=== PATIENT | female | born 1975 | race Caucasian/White ===

== ENCOUNTER → 2018-02-08 01:07 | Outpatient (CLI) | payer BC, SELFPAY ==
--- NOTE | 2018-02-08 10:24 | DI.REPORT_ITS ---
SYMPTOM/DIAGNOSIS: SCREENING, Z12.31 MAMMOGRAMS: Mammograms were interpreted according to the usual protocol including computer analysis with CAD system, tomosynthesis and C view imaging. Heterogeneously dense breast tissue is noted in the upper outer quadrant of each breast. SUMMARY: No evidence of malignancy, Category 1, Breast density category C. Yearly screening mammography is recommended. SA ASSESSMENT OF FINDINGS: Negative. Category 1. Patient will receive a letter notifying them of these results. Bi-RADS category C. The breasts are heterogeneously dense, which may obscure small masses.
== END ==
PROVIDERS: PCP Internal Medicine; Visit Provider Nurse Practitioner Family
DX: Z12.31 Encounter for screening mammogram for malignant neoplasm of breast (principal)
CPT/HCPCS: 77063; 77067

== ENCOUNTER 2018-04-29 10:29 | Emergency (ER) | payer BC, SELFPAY ==
[2018-04-29 10:31] VITALS: BP 136/86; PULSE 73; RESP 18; TEMP 36.9; O2SAT 99
--- NOTE | 2018-04-29 10:44 | DI.CT_ITS ---
SYMPTOMS/DIAGNOSIS: RIGHT LOWER QUADRANT ABDOMINAL PAIN WITH TINGLING IN LEGS CTA OF THE ABDOMEN AND PELVIS: CT angiography was performed with multi slice acquisition and multi planar and 3D reconstruction. No priors for comparison. CT angiography of the abdomen and pelvis was performed. There is a 4 mm noncalcified pleural-based nodule in the right lower lobe. The liver is normal in size. There is a 0.7 cm cyst in the left lobe of the liver. The portal and superior mesenteric veins are patent. The gallbladder is negative. No biliary ductal dilatation is seen. The pancreas, spleen and adrenal glands are unremarkable. The kidneys show normal and symmetric enhancement. Note is made of a small simple cyst in the lower pole of the left kidney. No evidence of hydronephrosis is seen. The urinary bladder is intact. There is a 4 x 4 cm left adnexal mass seen. This is likely ovarian in origin. The right ovary and uterus are unremarkable. There is mild diverticular disease seen at the rectosigmoid junction. There are mild inflammatory changes seen in the pericolonic fat. This may represent a mild diverticulitis. Please correlate clinically. The remainder of the bowel is unremarkable. There is a normal appendix present. The abdominal aorta is of normal caliber and unremarkable. No aneurysm or dissection is present. The celiac axis, superior mesenteric arteries, renal arteries and inferior mesenteric arteries are all unremarkable. No significant abdominal or pelvic adenopathy or pneumoperitoneum is present. Note is made of a small hiatal hernia. The bones are intact. IMPRESSION: 1. No aneurysm or dissection of the abdominal aorta. 2. A 4 x 4 cm left adnexal mass, likely ovarian in origin. Differential considerations include hemorrhagic or infected cyst, torsion or ectopic in the appropriate clinical setting. Pelvic ultrasound recommended. 3. Diverticulosis seen near the rectosigmoid junction. Mild inflammatory changes seen in the pericolonic fat. Mild diverticulitis cannot be excluded.
[2018-04-29 11:01] LABS: Abs Immature Grans 0.02 k/cumm (0.0-0.09); Absolute Basophil Count 0.02 k/cumm (0.0-0.2); Absolute Eosinophil Count 0.26 k/cumm (0.0-0.7); Absolute Lymphocyte Count 1.55 k/cumm (1.2-3.4); Absolute Monocyte Count 0.55 k/cumm (0.11-0.7); Absolute Neutrophil Count 6.77 k/cumm (1.2-6.7); Basophils % 0.2; Eosinophils % 2.8; HCT 37.4 % (36.0-46.0); HGB 12.5 g/dL (12.0-15.5); Immature Grans % 0.2; Lymphocytes % 16.9; Mean Corp. HGB Concentration 33.4 g/dL (32.0-36.0); Mean Corpuscular Hemoglobin 29.6 pg (27.0-33.0); Mean Corpuscular Volume 88.6 fL (80-95); Mean Platelet Volume 9.9 fL (8.0-11.0); Neutrophils % 73.9; Platelet Count 373 x1000/uL (130-400); RBC 4.22 m/cumm (4.00-5.20); RBC Distribution Width 14.3 % (11.7-14.6); White Blood Cell Count 9.17 k/cumm (4.4-10.8)
[2018-04-29] MEDS: Normal Saline 1,000 ML 1000 ML IV (11:03)
[2018-04-29 11:04] LABS: Bilirubin Negative (Negative); Blood Moderate (Negative); Clarity Clear; Glucose Negative (Negative); Ketones Trace mg/dL (Negative); Leukocyte Esterase Negative (Negative); Nitrite Negative (Negative); Specific Gravity 1.025 (1.005-1.025); Urobilinogen 0.2 EU/dL (Up TO 0.2); pH 6.5 (5-8)
[2018-04-29 11:12] LABS: Bacteria Moderate HPF (Negative); C & S Indicated? No; Casts Negative LPF (Negative); Crystals Negative HPF (Negative); Epithelial Cells Moderate HPF (Negative); Mucus Heavy (Negative); RBC >50 (0-2)
[2018-04-29 11:13] LABS: ALT 18 U/L (12-78); AST 17 U/L (15-37); Albumin 3.9 g/dL (3.4-5.0); Alkaline Phosphatase 68 U/L (46-116); Anion Gap 10.1 mmol/L (3-11); BUN 11 mg/dL (7-18); Bilirubin, Total 0.6 mg/dL (0.2-1.0); CO2 24.9 mmol/L (21.0-32.0); CREATININE 0.85 mg/dL (0.55-1.02); Calcium 8.7 mg/dL (8.5-10.1); Chloride 103 mmol/L (98-107); Glucose 124 mg/dL (70-100); Potassium 3.6 mmol/L (3.5-5.1); Sodium 138 mmol/L (136-145); Total Protein 7.8 g/dL (6.4-8.2)
[2018-04-29] MEDS: Omnipaque 350 MG/ML 100 ML BTL IJ (11:39)
--- NOTE | 2018-04-29 12:15 | DI.VRAD_ITS ---
EXAM: CT Angiography Abdomen and Pelvis With Intravenous Contrast EXAM DATE/TIME: 04/29/2018 10:47 AM CLINICAL HISTORY: 43 years old, female; Pain; Other: Abd pain, leg tingling TECHNIQUE: Axial computed tomographic angiography images of the abdomen and pelvis with intravenous contrast material, including non-contrast images if performed. MIP and/or 3D reconstructed images were created and reviewed. All CT scans at this facility use at least one of these dose optimization techniques: automated exposure control; mA and/or kV adjustment per patient size (includes targeted exams where dose is matched to clinical indication); or iterative reconstruction. 3D reconstructed images were created and reviewed. CONTRAST: 100 ml of omnipaque 350 administered intravenously. COMPARISON: No relevant prior studies available. FINDINGS: Lungs: Normal. No consolidation. Pleura: 4 mm pleural-based nodule in the right lower lobe VASCULATURE: Aorta: No aneurysm of the ascending aorta. No dissection of the aorta. Celiac Trunk and Mesenteric Arteries: No occlusion or significant stenosis. Renal Arteries: No occlusion or significant stenosis. Iliac Arteries: No occlusion or significant stenosis. Common Femoral Arteries: No occlusion or significant stenosis. ABDOMEN: Liver: 7 mm low attenuation area in the anterior liver may represent cyst 19-21 Hounsfield units Gallbladder and bile ducts: Unremarkable. No calcified stones. No ductal dilation. Pancreas: Unremarkable. No mass. No ductal dilation. Spleen: Unremarkable. No splenomegaly. Adrenals: Unremarkable. No mass. Kidneys and ureters: 9 mm cyst in the left kidney Stomach and bowel: Diverticulosis of the rectosigmoid. Minimal pericolonic inflammatory changes may represent minimal diverticulitis in the appropriate clinical setting. Appendix: No evidence of appendicitis. PELVIS: Bladder: Unremarkable. No mass. Reproductive: Left adnexal mass 4x4 cm. (5.65). 38 Hounsfield units. 2.2 cm Right ovarian cyst. ABDOMEN and PELVIS: Intraperitoneal space: Minimal free fluid in the pelvis Bones/joints: No acute fracture. No dislocation. Soft tissues: Unremarkable. Lymph nodes: Small retroperitoneal nodes IMPRESSION: 1. No aneurysm of the ascending aorta. 2. No dissection of the aorta. 3. Left adnexal mass 4x4 cm. (5.65). 38 Hounsfield units. Differential includes hemorrhagic cyst, infection, ectopic in the appropriate clinical setting, torsion. Recommend pelvic ultrasound if clinically indicated 4. 2.2 cm Right ovarian cyst. 5. Diverticulosis of the rectosigmoid. Minimal pericolonic inflammatory changes may represent minimal diverticulitis in the appropriate clinical setting. Dictated and Authenticated by: Saba Pierce MD. Ordering:DAVON MCMILLAN MD
--- NOTE | 2018-04-29 13:53 | DI.US_ITS ---
SYMPTOMS/DIAGNOSIS: RIGHT LOWER QUADRANT PAIN, ? TORSION PELVIC ULTRASOUND: Transabdominal and transvaginal examination was performed. The uterus measures 9.3 cm long x 5.5 cm AP x 7.0 cm transverse. The endometrial stripe is within normal limits at 0.7 cm. There are several cervical nabothian cysts present. There is a 2 x 2.1 x 2.3 cm hypoechoic mass in the fundus of the uterus, likely reflecting a fibroid. The right ovary measures 2.5 x 2.2 x 3.1 cm. There is a 1 cm follicular cyst. Arterial and venous flow is demonstrated in the right ovary. No evidence of torsion is seen. No suspicious right ovarian mass is present. The left ovary measures 4.1 x 2.7 x 2.4 cm. Color Doppler was demonstrated in the left ovary. There was no duplex assessment of the left ovary. Torsion cannot be entirely excluded in the left ovary. There are mildly dilated vessels in the left adnexa. Mild pelvic congestion cannot cannot be excluded. The kidneys show no evidence of nephrolithiasis. There is a 1.5 cm left renal cyst. IMPRESSION: 1. Uterine fibroid. 2. Normal appearance of the right ovary without evidence of torsion. 3. Color Doppler is demonstrated in the left ovary. Duplex assessment was not performed. Torsion cannot be entirely excluded in the left ovary.
--- NOTE | 2018-04-29 15:36 | DI.VRAD_ITS ---
EXAM: US Pelvis Complete, Transabdominal and US Pelvis, Transvaginal EXAM DATE/TIME: 04/29/2018 2:51 PM CLINICAL HISTORY: 43 years old, female; Pain; Pelvic pain; Additional info: CT today raised question about lt adnexal mass, are the dilated vessels. Noted on US what was seen on CT? TECHNIQUE: Real-time transabdominal and transvaginal pelvic ultrasound (complete) with image documentation. Transvaginal imaging was used for better evaluation of the endometrium and adnexa. COMPARISON: CT ABDOMEN/ PELVIS CTA 04/29/2018 11:22 AM FINDINGS: Uterus/cervix: Endometrium 7.4 mm 2 x 2.1 x 2.3 cm Hypoechoic mass in the uterus consistent with intramural fibroid Nabothian cysts in the cervix Uterus 9.3 x 5.5 x 7 cm Right adnexa: Right ovary 2.5 x 2.2 x 3.1 cm Peak systolic velocity right ovary 13 cm/s. Venous flow documented. No torsion in the right ovary. Left adnexa: Varices in the left adnexal region. Question mild congestion Left ovary 4.1 x 2.7 x 2.4 cm Color Doppler demonstrated in both ovaries but no duplex assessment of left ovary. Torsion cannot be ruled out the left ovary. Free fluid: None. Bladder: Normal. Kidneys: The Right kidney 11.3 cm . Left kidney 12.3 cm. no hydronephrosis. 15 mm left renal cyst IMPRESSION: 1. Color Doppler demonstrated in both ovaries but no duplex assessment of left ovary. Torsion cannot be ruled out the left ovary. If torsion is suspected in the left ovary recommend duplex evaluation 2. Peak systolic velocity right ovary 13 cm/s. Venous flow documented. No torsion in the right ovary. Dictated and Authenticated by: Saba Pierce MD. Ordering:DAVON MCMILLAN MD
[2018-04-29 16:35] VITALS: BP 116/72; PULSE 93; RESP 16; TEMP 37.2; O2SAT 98
[2018-04-29 17:02] VITALS: BP 116/72; PULSE 93; RESP 16; TEMP 37.2; O2SAT 98
--- NOTE | 2018-04-30 09:40 | W.ED.GENAD ---
Discharge Plan Disposition Patient Disposition: HOME Condition: Good Discharge Details Chief Complaint: Abd Prob Clinical Impression: Pelvic pain Reason For Visit: LISA Primary Care Provider: Tom Dillon ED Provider: Kenney Greer Home Meds and New Rx's Prescriptions: New acetaminophen [Mapap Extra Strength] 500 MG tablet 1,000 mg PO Q6H 5 Days Qty: 60 RF: 0 ibuprofen [Motrin IB] 200 MG tablet 600 mg PO Q6H 5 Days Qty: 60 RF: 0 No Action [id number]-Ao-cowy-minerals [Women's Daily Formula] 1 EACH tablet 1 ea PO RF: 0 Discharge Instructions Instructions: Ovarian Cyst (ED) Additional Instructions: Please follow-up at the [facility] wellness clinic tomorrow morning for reevaluation. If you notice any worsening of your symptoms, or any new symptoms such as vomiting, diarrhea, fever, chills, shortness of breath, chest pain, vaginal discharge, worsening bleeding, worsening pain, numbness, weakness, or fainting , please return immediately to the emergency department for reevaluation. Please follow up with your primary care provider as soon as possible for reassessment and reevaluation. As always, it was a pleasure participating in your medical care today. Referrals: Tom Dillon MD [Primary Care Provider] - Discharge Data Discharge Date/Time-TO BE ENTERED AT DEPARTURE: 04/29/18 17:02 Medical Decision Making This is a pleasant 43-year-old female with no significant past medical history but distant history of ovarian cyst, who presents today for evaluation of sudden onset right lower quadrant abdominal pain and right-sided pelvic pain with some associated left-sided pain as well. Pain began an hour to arrival, she had one associated episode of vomiting. Pain is aching in nature, it comes and goes in severity. Physical exam demonstrated mild tenderness on the right and lower sides of her abdomen, no guarding or rebound. No signs of acute surgical abdomen. The patient did just start her period yesterday CT scan was ordered and demonstrates evidence concerning for ovarian cysts, with a differential including hemorrhagic cyst, torsion, or ectopic . The patient's test is negative and so ectopic is been ruled out. Laboratory workup demonstrates no elevated white count, no bandemia. Urinalysis shows no evidence of significant infection. I feel that tubo-ovarian abscess is unlikely clinically. Out of concern for torsion versus cyst versus hemorrhagic cyst we did order his ultrasound, ultrasound demonstrates no evidence of torsion however because of the patient's body habitus it was difficult to assess duplex in her left ovary. However Doppler did demonstrate blood flow in both ovaries. Patient's pain is primarily focused on the right. After initially and analgesia the patient's pain has nearly completely resolved. She is hungry and would like to go home to eat. CT scan shows no evidence of appendicitis, or other significant abdominal abnormality. Because of the odd nature of the ultrasound and CT scan I did contact the obstetrics mainstreaming facilitator Dr. Rodriguez. I had him personally contacted the interior systems carpenter and review the case with him. Through shared decision making process after discussion with all parties involved, including the patient Dr. Rodriguez does feel that the patient would be safe for discharge home with close follow-up. I think this is very reasonable as her pain is resolved, she has benign laboratory workup, no signs of overt torsion on imaging. Differential for the cause of her pain includes a small ruptured cyst, severe menses cramps. I discussed the plan with the patient and she agrees, the patient will be discharged home with follow-up tomorrow morning at the OB clinic. We discussed red flags which to return and the patient understand. I have extensively reviewed the treatment plan and discharge instructions with the patient and their family. I have addressed all patient concerns at this time. The patient and family was made aware of what symptoms to monitor for that would warrant a return to the emergency department. Discussed the plan with the patient and family, they demonstrate verbal understanding and agreement with our assessment and plan at this time. Patient Name: Vic SUERO #: [id number]: ER Ordering Provider: : [facility] ER Primary Care Provider: Tom Dillon M.D.Date of Exam: 04/29/18ex: F : 1975Age: 43 Exam(s) EXAM: US Pelvis Complete, Transabdominal and US Pelvis, Transvaginal EXAM DATE/TIME: 04/29/2018 2:51 PM CLINICAL HISTORY: 43 years old, female; Pain; Pelvic pain; Additional info: CT today raised question about lt adnexal mass, are the dilated vessels. Noted on US what was seen on CT? TECHNIQUE: Real-time transabdominal and transvaginal pelvic ultrasound (complete) with image documentation. Transvaginal imaging was used for better evaluation of the endometrium and adnexa. COMPARISON: CT ABDOMEN/ PELVIS CTA 04/29/2018 11:22 AM FINDINGS: Uterus/cervix: Endometrium 7.4 mm 2 x 2.1 x 2.3 cm Hypoechoic mass in the uterus consistent with intramural fibroid Nabothian cysts in the cervix Uterus 9.3 x 5.5 x 7 cm Right adnexa: Right ovary 2.5 x 2.2 x 3.1 cm Peak systolic velocity right ovary 13 cm/s. Venous flow documented. No torsion in the right ovary. Left adnexa: Varices in the left adnexal region. Question mild congestion Left ovary 4.1 x 2.7 x 2.4 cm Color Doppler demonstrated in both ovaries but no duplex assessment of left ovary. Torsion cannot be ruled out the left ovary. Free fluid: None. Bladder: Normal. Kidneys: The Right kidney 11.3 cm . Left kidney 12.3 cm. no hydronephrosis. 15 mm left renal cyst IMPRESSION: 1. Color Doppler demonstrated in both ovaries but no duplex assessment of left ovary. Torsion cannot be ruled out the left ovary. If torsion is suspected in the left ovary recommend duplex evaluation 2. Peak systolic velocity right ovary 13 cm/s. Venous flow documented. No torsion in the right ovary. Dictated and Authenticated by: Saba Pierce MD. Ordering:DAVON MCMILLAN MD CTA Abd Impression: 1. No aneurysm of the ascending aorta. 2. No dissection of the aorta. 3. Left adnexal mass 4x4 cm. (5.65). 38 Hounsfield units. Differential includes hemorrhagic cyst, infection, ectopic in the appropriate clinical setting, torsion. Recommend pelvic ultrasound if clinically indicated 4. 2.2 cm Right ovarian cyst. 5. Diverticulosis of the rectosigmoid. Minimal pericolonic inflammatory changes may represent minimal diverticulitis in the appropriate clinical setting. Dictated and Authenticated by: Saba Pierce MD. HPI General Date/Time Provider Initiated Documentation: 04/29/18 10:37. HPI Narrative: This is a 43-year-old female with a past medical history of an umbilical hernia who presents today for evaluation of right lower quadrant abdominal pain. Patient states that she woke up this morning with sudden onset right-sided abdominal pain roughly 1 hour prior to arrival. She describes it as achy in nature. She felt very lightheaded, she had one episode of vomiting secondary to the pain. She does state that her period started yesterday, has been otherwise normal. She denies any diarrhea, and aside for the mild bleeding no vaginal discharge. She denies any chest pain, shortness of breath, numbness tingling or weakness. She does admit to a weird sensation traveling down the anterior aspect of her right thigh with the onset of her initial symptoms. She denies any consistent numbness tingling or weakness. She states that the pain comes and goes and at its worst it is a 10 at its best it is a 3. She is unsure of any specific aggravating or relieving factor. She denies any other component of her symptoms at this time. She does admit to a history of an ovarian cyst when she was 17 years old, she denies any other previous pelvic or abdominal pathologies. She denies any history of STDs. She denies any pertinent family history, she denies any IV or illicit drug use. Related Data Home Medications Medication Instructions Recorded Confirmed [id number]-Sg-pcpq-minerals 1 ea PO 01/29/18 [Women's Daily Formula] acetaminophen [Mapap Extra 1,000 mg PO Q6H 5 Days #60 tab 04/29/18 Strength] ibuprofen [Motrin Ib] 600 mg PO Q6H 5 Days #60 tab 04/29/18 Previous Rx's Medication Instructions Recorded acetaminophen [Mapap Extra 1,000 mg PO Q6H 5 Days #60 tab 04/29/18 Strength] ibuprofen [Motrin Ib] 600 mg PO Q6H 5 Days #60 tab 04/29/18 Allergies Allergy/AdvReac Type Severity Reaction Status Date / Time aspirin Allergy Unknown OOZY Unverified 01/29/18 09:46 penicillin G Allergy Unknown A Unverified 01/29/18 09:46 CHILD- SKIN RASH shellfish derived Allergy Unknown FAMILIAL-STOMACH Unverified 01/29/18 09:46 REACTION General Stated Complaint: Abd Prob ROBIN: 3 Review of Systems Review of Systems All systems reviewed & are unremarkable except as noted in HPI and below PFSH Family History Mother Multiple sclerosis Father Essential hypertension Exam Narrative Exam Narrative: 1.Const: Well-nourished, Well-developed, appearing stated age 2.Eyes: PERRL, no conjunctival injection, and symmetrical lids. 3.ENT: Atraumatic external nose and ears. Moist MM. Neck: Symmetric, trachea midline, No thyromegaly. 4.CVS: +S1/S2, No murmurs or gallops. Peripheral pulses 2+ and equal in all extremities. Brisk capillary refill in all extremities. 5.RESP: Unlabored respiratory effort. Clear to auscultation bilaterally. No wheezes rales or rhonchi 6.GI: Abdomen is soft, no guarding or rebound. Mild to moderate pain in the right lower quadrant as well as left lower quadrant. Negative Pagan sign. No worsening of the pain with the obturator or psoas movement. Negative heel strike test. No CVA tenderness. Normal strength of the lower extremities. Mild right and left lower pelvic pain on palp. 7.MSK: Normocephalic/Atraumatic, Extremities w/o deformity or ttp No cyanosis or clubbing, Normal movement of all extremities 8.Skin: Warm, Dry. No rashes or lesions. 9.Neuro: clinical safety specialist II-XII grossly intact. Sensation grossly intact, no focal neurologic deficits. 10.Psych: (AAO) x3. Appropriate mood and affect Course Vital Signs Temperature 36.9 C 04/29/18 10:31 Pulse 73 04/29/18 10:31 Respiratory Rate 18 04/29/18 10:31 Blood Pressure 136/86 04/29/18 10:31 Pulse Oximetry 99 04/29/18 10:31 Temperature 37.2 C 04/29/18 17:02 Temperature Source Temporal Artery Scan 04/29/18 16:35 Pulse 93 H 04/29/18 17:02 Respiratory Rate 16 04/29/18 17:02 Respiratory Effort Non-Labored 04/29/18 11:08 Blood Pressure 116/72 04/29/18 17:02 Blood Pressure Position Supine 04/29/18 10:31 Pulse Oximetry 98 04/29/18 17:02 Oxygen Delivery Method Room Air 04/29/18 16:35 Oxygen Flow Rate 0 04/29/18 16:35 Pain Level 0 04/29/18 17:02 Lab/Test Results Lab/Test Results: Laboratory Tests Range/Units 04/29/18 04/29/18 04/29/18 10:35 10:35 10:55 WBC (4.4-10.8) k/cumm 9.17 RBC (4.00-5.20) m/cumm 4.22 Hgb (12.0-15.5) g/dL 12.5 Hct (36.0-46.0) % 37.4 MCV (80-95) fL 88.6 MCH (27.0-33.0) pg 29.6 MCHC (32.0-36.0) g/dL 33.4 RDW (11.7-14.6) % 14.3 Plt Count (130-400) x1000/uL 373 MPV (8.0-11.0) fL 9.9 Immature Gran % 0.2 Neutrophils % 73.9 Lymphocytes % 16.9 Monocytes % 6.0 Eosinophils % 2.8 Basophils % 0.2 Absolute Neutrophils (1.2-6.7) k/cumm 6.77 H Absolute Lymphocytes (1.2-3.4) k/cumm 1.55 Absolute Monocytes (0.11-0.7) k/cumm 0.55 Absolute Eosinophils (0.0-0.7) k/cumm 0.26 Absolute Basophils (0.0-0.2) k/cumm 0.02 Sodium (136-145) mmol/L 138 Potassium (3.5-5.1) mmol/L 3.6 Chloride (98-107) mmol/L 103 Carbon Dioxide (21.0-32.0) mmol/L 24.9 Anion Gap (3-11) mmol/L 10.1 BUN (7-18) mg/dL 11 Creatinine (0.55-1.02) mg/dL 0.85 Estimated GFR/1.73 m2 (mL/min/1.73m2) >= 60.00 Glucose (70-100) mg/dL 124 H Calcium (8.5-10.1) mg/dL 8.7 Total Bilirubin (0.2-1.0) mg/dL 0.6 AST (15-37) U/L 17 ALT (12-78) U/L 18 Alkaline Phosphatase (46-116) U/L 68 Total Protein (6.4-8.2) g/dL 7.8 Albumin (3.4-5.0) g/dL 3.9 Urine Color (Yellow) Yellow Urine Clarity Clear Urine pH (5-8) 6.5 Ur Specific [place] (1.005-1.025) 1.025 Urine Protein (Negative) mg/dL Negative Urine Ketones (Negative) mg/dL Trace H Urine Blood (Negative) Moderate H Urine Nitrite (Negative) Negative Urine Bilirubin (Negative) Negative Urine Urobilinogen (Up TO 0.2) EU/dL 0.2 Ur Leukocyte Esterase (Negative) Negative Urine RBC (0-2) >50 H Urine WBC (0-5) HPF 3-5 Ur Epithelial Cells (Negative) HPF Moderate Urine Crystals (Negative) HPF Negative Urine Bacteria (Negative) HPF Moderate Urine Casts (Negative) LPF Negative Urine Mucus (Negative) Heavy Ur Culture Indicated? No Urine Glucose (Negative) mg/dL Negative POC- Test(urine) Negative
--- NOTE | 2018-04-30 09:48 | ED.GENADUL_ITS ---
Discharge Plan Disposition Patient Disposition: HOME Condition: Good Discharge Details Chief Complaint: Abd Prob Clinical Impression: Pelvic pain Reason For Visit: LISA Primary Care Provider: Tom Dillon ED Provider: Kenney Greer Home Meds and New Rx's Prescriptions: New acetaminophen [Mapap Extra Strength] 500 MG tablet 1,000 mg PO Q6H 5 Days Qty: 60 RF: 0 ibuprofen [Motrin IB] 200 MG tablet 600 mg PO Q6H 5 Days Qty: 60 RF: 0 No Action rfyemhfhfeui-Nj-iibs-minerals [Women's Daily Formula] 1 EACH tablet 1 ea PO RF: 0 Discharge Instructions Instructions: Ovarian Cyst (ED) Additional Instructions: Please follow-up at the [facility] tomorrow morning for reevaluation. If you notice any worsening of your symptoms, or any new symptoms such as vomiting, diarrhea, fever, chills, shortness of breath, chest pain, vaginal discharge, worsening bleeding, worsening pain, numbness, weakness , or fainting , please return immediately to the emergency department for reevaluation. Please follow up with your primary care provider as soon as possible for reassessment and reevaluation. As always, it was a pleasure participating in your medical care today. Referrals: Tom Dillon MD [Primary Care Provider] - Discharge Data Discharge Date/Time-TO BE ENTERED AT DEPARTURE: 04/29/18 17:02 Medical Decision Making This is a pleasant 43-year-old female with no significant past medical history but distant history of ovarian cyst, who presents today for evaluation of sudden onset right lower quadrant abdominal pain and right-sided pelvic pain with some associated left-sided pain as well. Pain began an hour to arrival, she had one associated episode of vomiting. Pain is aching in nature, it comes and goes in severity. Physical exam demonstrated mild tenderness on the right and lower sides of her abdomen, no guarding or rebound. No signs of acute surgical abdomen. The patient did just start her period yesterday CT scan was ordered and demonstrates evidence concerning for ovarian cysts, with a differential including hemorrhagic cyst, torsion, or ectopic . The patient's test is negative and so ectopic is been ruled out. Laboratory workup demonstrates no elevated white count, no bandemia. Urinalysis shows no evidence of significant infection. I feel that tubo-ovarian abscess is unlikely clinically. Out of concern for torsion versus cyst versus hemorrhagic cyst we did order his ultrasound, ultrasound demonstrates no evidence of torsion however because of the patient's body habitus it was difficult to assess duplex in her left ovary. However Doppler did demonstrate blood flow in both ovaries. Patient's pain is primarily focused on the right. After initially and analgesia the patient's pain has nearly completely resolved. She is hungry and would like to go home to eat. CT scan shows no evidence of appendicitis, or other significant abdominal abnormality. Because of the odd nature of the ultrasound and CT scan I did contact the obstetrics rod cup filler Dr. Rodriguez. I had him personally contacted the instrumentation and controls technician and review the case with him. Through shared decision making process after discussion with all parties involved, including the patient Dr. Rodriguez does feel that the patient would be safe for discharge home with close follow-up. I think this is very reasonable as her pain is resolved, she has benign laboratory workup, no signs of overt torsion on imaging. Differential for the cause of her pain includes a small ruptured cyst, severe menses cramps. I discussed the plan with the patient and she agrees, the patient will be discharged home with follow-up tomorrow morning at the OB clinic. We discussed red flags which to return and the patient understand. I have extensively reviewed the treatment plan and discharge instructions with the patient and their family. I have addressed all patient concerns at this time. The patient and family was made aware of what symptoms to monitor for that would warrant a return to the emergency department. Discussed the plan with the patient and family, they demonstrate verbal understanding and agreement with our assessment and plan at this time. Patient Name: Vic SUERO #: [id number]: ER Ordering Provider: : [facility] Primary Care Provider: Tom Dillon M.D.Date of Exam: 04/29/18ex: F : 1975Age: 43 Exam(s) EXAM: US Pelvis Complete, Transabdominal and US Pelvis, Transvaginal EXAM DATE/TIME: 04/29/2018 2:51 PM CLINICAL HISTORY: 43 years old, female; Pain; Pelvic pain; Additional info: CT today raised question about lt adnexal mass, are the dilated vessels. Noted on US what was seen on CT? TECHNIQUE: Real-time transabdominal and transvaginal pelvic ultrasound (complete) with image documentation. Transvaginal imaging was used for better evaluation of the endometrium and adnexa. COMPARISON: CT ABDOMEN/ PELVIS CTA 04/29/2018 11:22 AM FINDINGS: Uterus/cervix: Endometrium 7.4 mm 2 x 2.1 x 2.3 cm Hypoechoic mass in the uterus consistent with intramural fibroid Nabothian cysts in the cervix Uterus 9.3 x 5.5 x 7 cm Right adnexa: Right ovary 2.5 x 2.2 x 3.1 cm Peak systolic velocity right ovary 13 cm/s. Venous flow documented. No torsion in the right ovary. Left adnexa: Varices in the left adnexal region. Question mild congestion Left ovary 4.1 x 2.7 x 2.4 cm Color Doppler demonstrated in both ovaries but no duplex assessment of left ovary. Torsion cannot be ruled out the left ovary. Free fluid: None. Bladder: Normal. Kidneys: The Right kidney 11.3 cm . Left kidney 12.3 cm. no hydronephrosis. 15 mm left renal cyst IMPRESSION: 1. Color Doppler demonstrated in both ovaries but no duplex assessment of left ovary. Torsion cannot be ruled out the left ovary. If torsion is suspected in the left ovary recommend duplex evaluation 2. Peak systolic velocity right ovary 13 cm/s. Venous flow documented. No torsion in the right ovary. Dictated and Authenticated by: Saba Pierce MD. Ordering:DAVON MCMILLAN MD CTA Abd Impression: 1. No aneurysm of the ascending aorta. 2. No dissection of the aorta. 3. Left adnexal mass 4x4 cm. (5.65). 38 Hounsfield units. Differential includes hemorrhagic cyst, infection, ectopic in the appropriate clinical setting, torsion. Recommend pelvic ultrasound if clinically indicated 4. 2.2 cm Right ovarian cyst. 5. Diverticulosis of the rectosigmoid. Minimal pericolonic inflammatory changes may represent minimal diverticulitis in the appropriate clinical setting. Dictated and Authenticated by: Saba Pierce MD. HPI General Date/Time Provider Initiated Documentation: 04/29/18 10:37 . HPI Narrative: This is a 43-year-old female with a past medical history of an umbilical hernia who presents today for evaluation of right lower quadrant abdominal pain. Patient states that she woke up this morning with sudden onset right-sided abdominal pain roughly 1 hour prior to arrival. She describes it as achy in nature. She felt very lightheaded, she had one episode of vomiting secondary to the pain. She does state that her period started yesterday, has been otherwise normal. She denies any diarrhea, and aside for the mild bleeding no vaginal discharge. She denies any chest pain, shortness of breath, numbness tingling or weakness. She does admit to a weird sensation traveling down the anterior aspect of her right thigh with the onset of her initial symptoms. She denies any consistent numbness tingling or weakness. She states that the pain comes and goes and at its worst it is a 10 at its best it is a 3. She is unsure of any specific aggravating or relieving factor. She denies any other component of her symptoms at this time. She does admit to a history of an ovarian cyst when she was 17 years old, she denies any other previous pelvic or abdominal pathologies. She denies any history of STDs. She denies any pertinent family history, she denies any IV or illicit drug use. Related Data Home Medications Medication Instructions Recorded Confirmed dkuxnsqpzlzg-Vb-qztv-minerals 1 ea PO 01/29/18 [Women's Daily Formula] acetaminophen [Mapap Extra 1,000 mg PO Q6H 5 Days #60 tab 04/29/18 Strength] ibuprofen [Motrin Ib] 600 mg PO Q6H 5 Days #60 tab 04/29/18 Previous Rx's Medication Instructions Recorded acetaminophen [Mapap Extra 1,000 mg PO Q6H 5 Days #60 tab 04/29/18 Strength] ibuprofen [Motrin Ib] 600 mg PO Q6H 5 Days #60 tab 04/29/18 Allergies Allergy/AdvReac Type Severity Reaction Status Date / Time aspirin Allergy Unknown OOZY Unverified 01/29/18 09:46 penicillin G Allergy Unknown A Unverified 01/29/18 09:46 CHILD- SKIN RASH shellfish derived Allergy Unknown FAMILIAL-STOMACH Unverified 01/29/18 09:46 REACTION General Stated Complaint: Abd Prob ROBIN: 3 Review of Systems Review of Systems All systems reviewed & are unremarkable except as noted in HPI and below PFSH Family History Mother Multiple sclerosis Father Essential hypertension Exam Narrative Exam Narrative: 1.Const: Well-nourished, Well-developed, appearing stated age 2.Eyes: PERRL, no conjunctival injection, and symmetrical lids. 3.ENT: Atraumatic external nose and ears. Moist MM. Neck: Symmetric, trachea midline, No thyromegaly. 4.CVS: +S1/S2, No murmurs or gallops. Peripheral pulses 2+ and equal in all extremities. Brisk capillary refill in all extremities. 5.RESP: Unlabored respiratory effort. Clear to auscultation bilaterally. No wheezes rales or rhonchi 6.GI: Abdomen is soft, no guarding or rebound. Mild to moderate pain in the right lower quadrant as well as left lower quadrant. Negative Pagan sign. No worsening of the pain with the obturator or psoas movement. Negative heel strike test. No CVA tenderness. Normal strength of the lower extremities. Mild right and left lower pelvic pain on palp. 7.MSK: Normocephalic/Atraumatic, Extremities w/o deformity or ttp No cyanosis or clubbing, Normal movement of all extremities 8.Skin: Warm, Dry. No rashes or lesions. 9.Neuro: category development analyst II-XII grossly intact. Sensation grossly intact, no focal neurologic deficits. 10.Psych: (AAO) x3. Appropriate mood and affect Course Vital Signs Temperature 36.9 C 04/29/18 10:31 Pulse 73 04/29/18 10:31 Respiratory Rate 18 04/29/18 10:31 Blood Pressure 136/86 04/29/18 10:31 Pulse Oximetry 99 04/29/18 10:31 Temperature 37.2 C 04/29/18 17:02 Temperature Source Temporal Artery Scan 04/29/18 16:35 Pulse 93 H 04/29/18 17:02 Respiratory Rate 16 04/29/18 17:02 Respiratory Effort Non-Labored 04/29/18 11:08 Blood Pressure 116/72 04/29/18 17:02 Blood Pressure Position Supine 04/29/18 10:31 Pulse Oximetry 98 04/29/18 17:02 Oxygen Delivery Method Room Air 04/29/18 16:35 Oxygen Flow Rate 0 04/29/18 16:35 Pain Level 0 04/29/18 17:02 Lab/Test Results Lab/Test Results: Laboratory Tests Range/Units 04/29/18 04/29/18 04/29/18 10:35 10:35 10:55 WBC (4.4-10.8) k/cumm 9.17 RBC (4.00-5.20) m/cumm 4.22 Hgb (12.0-15.5) g/dL 12.5 Hct (36.0-46.0) % 37.4 MCV (80-95) fL 88.6 MCH (27.0-33.0) pg 29.6 MCHC (32.0-36.0) g/dL 33.4 RDW (11.7-14.6) % 14.3 Plt Count (130-400) x1000/uL 373 MPV (8.0-11.0) fL 9.9 Immature Gran % 0.2 Neutrophils % 73.9 Lymphocytes % 16.9 Monocytes % 6.0 Eosinophils % 2.8 Basophils % 0.2 Absolute Neutrophils (1.2-6.7) k/cumm 6.77 H Absolute Lymphocytes (1.2-3.4) k/cumm 1.55 Absolute Monocytes (0.11-0.7) k/cumm 0.55 Absolute Eosinophils (0.0-0.7) k/cumm 0.26 Absolute Basophils (0.0-0.2) k/cumm 0.02 Sodium (136-145) mmol/L 138 Potassium (3.5-5.1) mmol/L 3.6 Chloride (98-107) mmol/L 103 Carbon Dioxide (21.0-32.0) mmol/L 24.9 Anion Gap (3-11) mmol/L 10.1 BUN (7-18) mg/dL 11 Creatinine (0.55-1.02) mg/dL 0.85 Estimated GFR/1.73 m2 (mL/min/1.73m2) >= 60.00 Glucose (70-100) mg/dL 124 H Calcium (8.5-10.1) mg/dL 8.7 Total Bilirubin (0.2-1.0) mg/dL 0.6 AST (15-37) U/L 17 ALT (12-78) U/L 18 Alkaline Phosphatase (46-116) U/L 68 Total Protein (6.4-8.2) g/dL 7.8 Albumin (3.4-5.0) g/dL 3.9 Urine Color (Yellow) Yellow Urine Clarity Clear Urine pH (5-8) 6.5 Ur Specific [place] (1.005-1.025) 1.025 Urine Protein (Negative) mg/dL Negative Urine Ketones (Negative) mg/dL Trace H Urine Blood (Negative) Moderate H Urine Nitrite (Negative) Negative Urine Bilirubin (Negative) Negative Urine Urobilinogen (Up TO 0.2) EU/dL 0.2 Ur Leukocyte Esterase (Negative) Negative Urine RBC (0-2) >50 H Urine WBC (0-5) HPF 3-5 Ur Epithelial Cells (Negative) HPF Moderate Urine Crystals (Negative) HPF Negative Urine Bacteria (Negative) HPF Moderate Urine Casts (Negative) LPF Negative Urine Mucus (Negative) Heavy Ur Culture Indicated? No Urine Glucose (Negative) mg/dL Negative POC- Test(urine) Negative
== END 2018-04-29 17:02 | disposition home or self-care (01) ==
PROVIDERS: Emergency Provider Student in an Organized Health Care Education/Training Program; PCP Internal Medicine
DX: R10.2 Pelvic and perineal pain (principal); N83.201 Unspecified ovarian cyst, right side
CPT/HCPCS: 36415; 80053; 81025; 96361; 96374; 99285; 74174; 76830; 76856; 81003; 81015; 85025; 99284; J2270; J3490

== ENCOUNTER 2020-05-08 17:49 | Outpatient (REF) | payer BC, SELFPAY ==
--- NOTE | 2020-05-08 12:15 | SKI_PTH ---
PATIENT: Cecilia Maldonado LOC: [facility] U#:[id number] AGE/SX: 45/F ROOM: RE05/08/[address]: Belgica Claudio : 1975 BED: DIS: 05/08/2020 SPEC #: [id number] RECD: 05/11/20 08:45 STATUS: STEVEN REShahram #: [id number] ILYA: 05/08/20 12:[address]: Belgica Claudio DEPT: Surgical Specimen RECD BY: Dariana Haile ENTERED: 05/11/20 08:48 SP TYPE: SKI OTHR DR: Tom Dillon Tissues: 1 - SKIN BIOPSY(SHAVE/PUNCH) Procedures: SKIN LEVEL 4 Comments: [id number] ([id number] [facility] [place]#)
== END 2020-05-08 18:09 ==
LOC: NCHCN 17:49
PROVIDERS: PCP Internal Medicine; Visit Provider Nurse Practitioner Family
DX: D22.72 Melanocytic nevi of left lower limb, including hip (principal)
CPT/HCPCS: 88305

== ENCOUNTER 2022-01-20 10:29 | Outpatient (REF) | payer BC, SELFPAY ==
[2022-01-20 14:28] LABS: HCT 31.7 % (36.0-46.0); HGB 9.7 g/dL (11.2-15.7); MCHC 30.6 % (32.0-36.0); MCV 79 fL (80-95); MPV 9.8 fL (8.0-11.0); Platelet Count 409 10^3/uL (130-400); RBC 4.04 10^6/uL (3.93-5.22); RDW 17.2 % (11.7-14.6); RDW-SD 49.2 fL; WBC 6.66 10^3/uL (4.4-10.8)
[2022-01-20 14:40] LABS: ALT 17 U/L (14-59); AST 17 U/L (15-37); Albumin 3.6 g/dL (3.4-5.0); Alkaline Phosphatase 77 U/L (46-116); BUN 17 mg/dL (7-18); Bilirubin, Total 0.5 mg/dL (0.2-1.0); CREATININE 0.9 mg/dL (0.55-1.02); Calcium 8.9 mg/dL (8.5-10.1); Calculated LDL 129 mg/dL (<100); Chloride 104 mmol/L (98-107); Cholesterol 204 mg/dL (<200); Glucose 94 mg/dL (74-106); HDL Cholesterol 59 mg/dL (40-60); Potassium 4.2 mmol/L (3.5-5.1); Sodium 139 mmol/L (136-145); Total Protein 7.3 g/dL (6.4-8.2); Triglyceride 81 mg/dL (<150)
== END 2022-01-20 10:30 | disposition home or self-care (01) ==
LOC: NCHCN 10:29
PROVIDERS: PCP Internal Medicine; Visit Provider Nurse Practitioner Family
DX: Z00.00 Encounter for general adult medical examination without abnormal findings (principal)
CPT/HCPCS: 80053; 80061; 85027

== ENCOUNTER 2022-01-31 11:42 | Outpatient (REF) | payer BC, SELFPAY ==
[2022-01-31 16:34] LABS: Ferritin 5 ng/mL (8-252)
[2022-01-31 16:35] LABS: Iron 25 ug/dL (50-170)
== END 2022-01-31 11:43 | disposition home or self-care (01) ==
LOC: NCHCN 11:42
PROVIDERS: PCP Internal Medicine; Visit Provider Nurse Practitioner Family
DX: F41.8 Other specified anxiety disorders (principal); F10.10 Alcohol abuse, uncomplicated; E66.9 Obesity, unspecified
CPT/HCPCS: 82728; 83540

== ENCOUNTER → 2022-02-09 02:15 | Outpatient (CLI) | payer BC, SELFPAY ==
--- NOTE | 2022-02-09 | DI.MAMMO_ITS ---
Exam(s) MAMMO SCREENING EXAM: MAMMO SCREENING CLINICAL HISTORY: SCREENING, Z12.39, FAM HX BREAST CA, Z80.3 TECHNIQUE: Mammograms were interpreted according to the usual protocol including computer analysis w [employer] CAD system, tomosynthesis and C-view imaging. COMPARISON: FINDINGS: The breasts are of moderate density with fairly symmetrical distribution of fibroglandular tissue. N o dominant mass or clumped microcalcification is identified in either breast. The current examinatio n is compared with previous examinations including January 2018 and there has been no gross interval c hange in appearance in comparison with the prior studies. IMPRESSION: No specific evidence of malignancy at this time. Routine screening examinations are suggested at yea rly intervals due to the family history of breast carcinoma. BI-RADS Category 1 - Negative Breast Density - Category B - Scattered areas of fibroglandular density
== END ==
PROVIDERS: PCP Internal Medicine; Visit Provider Nurse Practitioner Family
DX: Z12.31 Encounter for screening mammogram for malignant neoplasm of breast (principal); Z80.3 Family history of malignant neoplasm of breast
CPT/HCPCS: 77063; 77067

== ENCOUNTER 2022-05-03 15:21 | Outpatient (REF) | payer BC, SELFPAY ==
[2022-05-03 20:40] LABS: Abs Immature Grans 0.02 10^3/uL (0.0-0.06); Absolute Basophil Count 0.05 10^3/uL (0.0-0.2); Absolute Eosinophil Count 0.17 10^3/uL (0.0-0.7); Absolute Lymphocyte Count 1.73 10^3/uL (1.2-3.4); Absolute Monocyte Count 0.92 10^3/uL (0.1-0.8); Absolute Neutrophil Count 3.95 10^3/uL (1.2-6.7); Basophils % 0.7; Eosinophils % 2.5; HCT 37.4 % (36.0-46.0); HGB 12.1 g/dL (11.2-15.7); Immature Grans % 0.3; Lymphocytes % 25.3; MCH 29.1 pg (27.0-33.0); MCHC 32.4 % (32.0-36.0); MCV 90 fL (80-95); MPV 10.5 fL (8.0-11.0); Monocytes % 13.5; Neutrophils % 57.7; Platelet Count 379 10^3/uL (130-400); RBC 4.16 10^6/uL (3.93-5.22); RDW 15.9 % (11.7-14.6); RDW-SD 52.6 fL; WBC 6.84 10^3/uL (4.4-10.8)
[2022-05-03 20:49] LABS: Iron 31 ug/dL (50-170); Total Iron Binding Capacity 381 ug/dL (250-450); Transferrin Sat 8 % (15-50)
== END 2022-05-03 15:22 | disposition home or self-care (01) ==
LOC: NCHCN 15:21
PROVIDERS: PCP Internal Medicine; Visit Provider Internal Medicine
DX: D50.9 Iron deficiency anemia, unspecified (principal); L82.1 Other seborrheic keratosis
CPT/HCPCS: 83540; 83550; 85025

== ENCOUNTER 2022-08-16 11:47 | Outpatient (REF) | payer BC, SELFPAY ==
[2022-08-16 14:53] LABS: Iron 91 ug/dL (50-170); Total Iron Binding Capacity 312 ug/dL (250-450); Transferrin Sat 29 % (15-50)
== END 2022-08-16 11:48 | disposition home or self-care (01) ==
LOC: NCHCN 11:47
PROVIDERS: PCP Internal Medicine; Visit Provider Nurse Practitioner Family
DX: E61.1 Iron deficiency (principal)
CPT/HCPCS: 83540; 83550

== ENCOUNTER 2023-01-31 15:33 | Outpatient (REF) | payer OTHER, SELFPAY ==
--- NOTE | 2023-01-31 11:00 | PAPFT_PTH ---
PATIENT: Cecilia Maldonado LOC: [facility] U#:[id number] AGE/SX: 47/F ROOM: RE01/31/[address]: Belgica Claudio : 1975 BED: DIS: 01/31/2023 SPEC #: [id number] RECD: 01/31/23 17:33 STATUS: STEVEN REShahram #: [id number] ILYA: 01/31/23 11:[address]: Belgica Claudio DEPT: [facility] Cytology RECD BY: Gena Webb ENTERED: 01/31/23 17:34 SP TYPE: PAPFT OTHR DR: Tom Dillon Tissues: 1 - CX/ENDOCX FOR PAP SMEARS Procedures: PAP THIN PREP/[facility] Screening HPV DNA PROBE Comments: [id number]
[2023-01-31 17:01] LABS: HCT 39.7 % (36.0-46.0); HGB 13.1 g/dL (11.2-15.7); MCH 29.7 pg (27.0-33.0); MCV 90 fL (80-95); MPV 10.7 fL (8.0-11.0); Platelet Count 343 10^3/uL (130-400); RBC 4.41 10^6/uL (3.93-5.22); RDW 13.6 % (11.7-14.6); RDW-SD 44.5 fL; WBC 5.96 10^3/uL (4.4-10.8)
[2023-01-31 17:16] LABS: ALT 20 U/L (14-59); AST 22 U/L (15-37); Alkaline Phosphatase 66 U/L (46-116); Anion Gap 9.2 mmol/L (3-11); BUN 10 mg/dL (7-18); Bilirubin, Total 0.5 mg/dL (0.2-1.0); CO2 25.8 mmol/L (21.0-32.0); CREATININE 0.8 mg/dL (0.55-1.02); Calcium 9.2 mg/dL (8.5-10.1); Calculated LDL 127 mg/dL (<100); Chloride 105 mmol/L (98-107); Cholesterol 211 mg/dL (<200); Estimated GFR 90.83 (mL/min/1.73m2); Glucose 87 mg/dL (74-106); HDL Cholesterol 69 mg/dL (40-60); Iron 177 ug/dL (50-170); Potassium 3.9 mmol/L (3.5-5.1); Sodium 140 mmol/L (136-145); Total Iron Binding Capacity 326 ug/dL (250-450); Total Protein 7.8 g/dL (6.4-8.2); Transferrin Sat 54 % (15-50); Triglyceride 77 mg/dL (<150)
[2023-02-02 10:05] LABS: HIV-1/2 Ag & Ab Screen Negative (Negative)
[2023-02-02 10:22] LABS: Hepatitis C Ab w Rflx HCV PCR Negative (Negative)
== END 2023-01-31 15:34 | disposition home or self-care (01) ==
LOC: NCHCN 15:33
PROVIDERS: PCP Internal Medicine; Visit Provider Nurse Practitioner Family
DX: Z12.4 Encounter for screening for malignant neoplasm of cervix (principal); E61.1 Iron deficiency; M53.3 Sacrococcygeal disorders, not elsewhere classified; Z00.00 Encounter for general adult medical examination without abnormal findings
CPT/HCPCS: 80053; 80061; 85027; 86803; 87389; 88142; 83540; 83550; 87624

== ENCOUNTER → 2023-02-06 01:49 | Outpatient (CLI) | payer OTHER, SELFPAY ==
--- NOTE | 2023-02-06 | DI.RAD_ITS ---
Exam(s) XR COCCYX EXAM: XR COCCYX CLINICAL HISTORY: COCCYX PAIN, M53.3. TECHNIQUE: 2D digital imaging was performed. COMPARISON: No exams were available for comparison FINDINGS: BONES: No acute fracture is present. No bony destructive lesion is seen. JOINTS: The SI joints are unremarkable. No significant degenerative changes or periarticular erosion s. SOFT TISSUE: Normal. IMPRESSION: Unremarkable radiographs of the coccyx. DATA REPOSITORY: RADIATION DOSE DELIVERED:
== END ==
PROVIDERS: PCP Internal Medicine; Visit Provider Nurse Practitioner Family
DX: M53.3 Sacrococcygeal disorders, not elsewhere classified (principal)
CPT/HCPCS: 72220

== ENCOUNTER → 2023-02-23 03:40 | Outpatient (CLI) | payer OTHER, SELFPAY ==
--- NOTE | 2023-02-23 | DI.CT_ITS ---
Exam(s) CT ABDOMEN PELVIS W EXAM: CT ABDOMEN PELVIS W CLINICAL HISTORY: LLQ ABD PAIN, R10.32. TECHNIQUE: Imaging Protocol: Axial computed tomography images with coronal and sagittal reformatted images were created and reviewed CONTRAST MATERIAL: Intravenous: Omnipaque-350 100cc Oral: Yes. Oral contrast also administered for bowel opacification. FINDINGS: VISUALIZED LUNG BASES: No nodules nor pleural effusions evident. ABDOMEN: There is no ascites. LIVER: There is an unchanged small cyst in the left hepatic lobe. This appears unchanged from scan o f April 1018. There is also a small subcapsular hypodensity in anterior right hepatic lobe which i s also unchanged either cyst or small hemangioma. No dilated intrahepatic ducts. No dilated intrahe patic ducts. GALLBLADDER/BILIARY: No obvious gallbladder pathology. CBD is not dilated. PANCREAS: No evidence of pancreatic mass nor dilatation of the pancreatic duct. SPLEEN: Spleen is not enlarged. No obvious intrasplenic lesions. Splenic and portal veins are paten t. ADRENALS: There are no significant adrenal masses. KIDNEYS:There are 2 benign cysts in left kidney again noted. These measure 1 cm and 1.5 by 1.4 cm. These do not require imaging follow-up. No solid renal masses nor calculi. No hydronephrosis. No h ydroureter. No obvious abnormality in the urinary bladder.. ABDOMINAL AORTA: Abdominal aorta is not enlarged. LYMPH NODES:There is no retroperitoneal nor paraaortic adenopathy. ABDOMINAL WALL: No evidence of significant anterior abdominal wall nor inguinal hernia. GI: There is no evidence of bowel obstruction, free air, nor abscess. PELVIS: GI: No evidence of appendicitis.No evidence of sigmoid diverticulitis. LYMPH NODES: There is no intrapelvic nor inguinal adenopathy. REPRODUCTIVE: There is now a prominent right fundal level uterine fibroid measuring approximately 5 x 4 cm. Ovaries appear age-appropriate. No extraovarian adnexal masses. No free fluid in the pelvis URINARY BLADDER: No calculi nor obvious masses evident OSSEOUS: No fractures and no significant osseous lesions. IMPRESSION: 1. Compared to the prior CT scan of April 2018 there is now a 5 x 4 cm right fundal fibroid evident . Increased in size from previous. Ovaries upper normal size for this age group. No free fluid. 2. No other significant findings in the abdomen and pelvis. RADIATION DOSE DELIVERED: 1,247.92mGy.cm Total DLP DATA REPOSITORY: All CT scans at this facility are submitted to the National Radiology Data Registry (NRDR) Dose Index Registry (DIR) with the [employer] (ACR). RADIATION OPTIMIZATION: All CT scans at this facility use at least one of these dose optimization te chniques: automated exposure control; mA and/or kV adjustment per patient size (includes targeted exa ms where dose is matched to clinical indication); or iterative reconstruction.
--- NOTE | 2023-02-23 08:00 | DI.MAMMO_ITS ---
Exam(s) MAMMO SCREENING EXAM: MAMMO SCREENING CLINICAL HISTORY: SCREENING, Z12.39, FAMILY H/O BREAST CA,Z80.3. TECHNIQUE: Bilateral full field digital CC and MLO mammographic images were obtained with 3D tomosyn thesis and utilizing computer aided detection (CAD). COMPARISON: Prior mammograms were reviewed. FINDINGS: There has been no significant change in the appearance and distribution of the fibroglandular tissue. On 3D imaging are stable benign-appearing nodules in the right breast noted. There are no new spiculated masses nor malignant appearing microcalcification groups. There is no significant architectural distortion nor skin thickening-retraction. IMPRESSION: No radiographic evidence of malignancy. Stable benign-appearing findings. BI-RADS Category 2 - Benign Findings Breast Density - Category B - Scattered areas of fibroglandular density Breast density Category C or D implies that the patient has dense breast tissue. Dense breast tissue can make it harder to find cancer on a mammogram. Dense breast tissue is also associated with an incr eased risk of breast cancer. This information about the result of the mammogram report was provided to the patient to raise their awareness. Use this report when you speak with the patient about their risks for breast cancer, which includes their family history. At that time, you may recommend additional screening tests (Ultrasoun d or MRI) as these tests may add significant information. A negative radiographic report should not delay biopsy if a dominant or clinically suspicious mass is present. Up to ten percent of cancers are not identified on mammography. A negative report may reinforce clinical impression. Adenosis and dense breasts may obscure an underlying neoplasm. False positive reports average 6 to 10%. Patient will receive a letter notifying them of these results.
[2023-02-23] MEDS: Barium Sulfate 2% W/V-Berry Smoothie 450 ML BTL PO (08:28)
[2023-02-23] MEDS: Omnipaque 350 MG/ML 500 ML BTL-Imaging package IJ (10:10)
[2023-02-23] MEDS: Normal Saline - Diluent 50 ML VIAL IJ (10:10)
== END ==
PROVIDERS: PCP Internal Medicine; Visit Provider Nurse Practitioner Family
DX: Z12.31 Encounter for screening mammogram for malignant neoplasm of breast (principal); Z80.3 Family history of malignant neoplasm of breast; D25.1 Intramural leiomyoma of uterus; R10.32 Left lower quadrant pain
CPT/HCPCS: 77063; 77067; 74177

== ENCOUNTER 2024-03-21 21:13 | Outpatient (REF) | payer BC, SELFPAY ==
[2024-03-21 22:07] LABS: HCT 34.8 % (36.0-46.0); HGB 10.9 g/dL (11.2-15.7); MCH 27.2 pg (27.0-33.0); MCHC 31.3 % (32.0-36.0); MCV 87 fL (80-95); MPV 10.4 fL (8.0-11.0); Platelet Count 391 10^3/uL (130-400); RBC 4.01 10^6/uL (3.93-5.22); RDW 14.9 % (11.7-14.6); RDW-SD 47.4 fL; WBC 6.33 10^3/uL (4.4-10.8)
[2024-03-21 22:40] LABS: Iron 52 ug/dL (50-170); Total Iron Binding Capacity 399 ug/dL (250-450); Transferrin Sat 13 % (15-50)
[2024-03-21 23:27] LABS: ALT 18 U/L (14-59); AST 17 U/L (15-37); Albumin 3.9 g/dL (3.4-5.0); Alkaline Phosphatase 94 U/L (46-116); Anion Gap 10.4 mmol/L (3-11); BUN 8 mg/dL (7-18); Bilirubin, Total 0.34 mg/dL (0.2-1.0); CO2 27.6 mmol/L (21.0-32.0); CREATININE 0.8 mg/dL (0.55-1.02); Calcium 9.4 mg/dL (8.5-10.1); Chloride 103 mmol/L (98-107); Estimated GFR 90.27 (mL/min/1.73m2); Ferritin 7 ng/mL (8-252); Glucose 94 mg/dL (74-106); Potassium 3.7 mmol/L (3.5-5.1); Sodium 141 mmol/L (136-145); Total Protein 7.4 g/dL (6.4-8.2)
== END 2024-03-21 21:14 | disposition home or self-care (01) ==
LOC: NCHCN 21:13
PROVIDERS: Visit Provider Nurse Practitioner Family
DX: Z00.00 Encounter for general adult medical examination without abnormal findings (principal); E61.1 Iron deficiency
CPT/HCPCS: 80053; 85027; 82728; 83540; 83550

== ENCOUNTER 2024-04-16 01:43 | Outpatient (CLI) | payer BC, SELFPAY ==
--- NOTE | 2024-04-16 08:00 | DI.MAMMO_ITS ---
Exam(s) MAMMO SCREENING EXAM: MAMMO SCREENING CLINICAL HISTORY: SCREENING, Z12.31 TECHNIQUE: Bilateral full field digital CC and MLO mammographic images were obtained with 3D tomosyn thesis and utilizing computer aided detection (CAD). COMPARISON: Available for comparison. FINDINGS: Masses/Architectural Distortion: None seen. Microcalcifications: No suspicious pleomorphic-type are seen. Skin Thickening/Nipple Retraction: None. IMPRESSION: 1. No significant interval change with no specific features of malignancy noted. 2. Unless there is more urgent need, screening mammography is recommended, as per [place] [employer] guidelines. BI-RADS Category 1 - Negative Breast Density - Category B - Scattered areas of fibroglandular density Breast density category C or D implies that the patient has dense breast tissue. Dense breast tissue is very common and is not abnormal but dense breast tissue can make it harder to find cancer on a ma mmogram. Also, dense breast tissue may increase their breast cancer risk. This information about the result of the mammogram report was provided to the patient to raise their awareness. Use this report when you speak with the patient about their risks for breast cancer, which includes their family hist ory. At that time, you may recommend for more screening tests (Ultrasound or MRI) as they might be us eful based on their risk. A negative radiographic report should not delay biopsy if a dominant or clinically suspicious mass is present. Up to ten percent of cancers are not identified on mammography. A negative report may reinforce clinical impression. Adenosis and dense breasts may obscure an underlying neoplasm. False positive reports average 6 to 10%. Patient will receive a letter notifying them of these results.
== END 2024-04-16 02:03 ==
PROVIDERS: Visit Provider Nurse Practitioner Family
DX: Z12.31 Encounter for screening mammogram for malignant neoplasm of breast (principal)
CPT/HCPCS: 77063; 77067

== ENCOUNTER 2024-05-09 03:39 | Outpatient (CLI) | payer BC, SELFPAY ==
[2024-05-09 20:24] LABS: CA 125 41 U/mL (<30)
== END 2024-05-09 03:40 | disposition home or self-care (01) ==
LOC: LBO 03:39
PROVIDERS: PCP Nurse Practitioner Family; Visit Provider Nurse Practitioner Family
DX: D25.9 Leiomyoma of uterus, unspecified (principal)
CPT/HCPCS: 36415; 86304

== ENCOUNTER 2025-03-25 16:08 | Outpatient (REF) | payer BC, SELFPAY ==
[2025-03-25 20:50] LABS: HCT 39.1 % (36.0-46.0); HGB 13.1 g/dL (11.2-15.7); MCH 31.1 pg (27.0-33.0); MCHC 33.5 % (32.0-36.0); MCV 93 fL (80-95); MPV 9.8 fL (8.0-11.0); Platelet Count 346 10^3/uL (130-400); RBC 4.21 10^6/uL (3.93-5.22); RDW 13.4 % (11.7-14.6); RDW-SD 45.5 fL; WBC 7.86 10^3/uL (4.4-10.8)
[2025-03-25 21:13] LABS: ALT 22 U/L (14-59); AST 18 U/L (15-37); Albumin 4.0 g/dL (3.4-5.0); Alkaline Phosphatase 82 U/L (46-116); Anion Gap 8.3 mmol/L (3-11); BUN 11 mg/dL (7-18); Bilirubin, Total 0.5 mg/dL (0.2-1.0); CO2 29.7 mmol/L (21.0-32.0); Calcium 9.5 mg/dL (8.5-10.1); Chloride 103 mmol/L (98-107); Estimated GFR 109.28 (mL/min/1.73m2); Ferritin 33 ng/mL (8-252); Glucose 89 mg/dL (74-106); Potassium 4.2 mmol/L (3.5-5.1); Sodium 141 mmol/L (136-145); Total Protein 7.4 g/dL (6.4-8.2)
[2025-03-25 21:36] LABS: Iron 71 ug/dL (50-170); Total Iron Binding Capacity 316 ug/dL (250-450); Transferrin Sat 22 % (15-50)
== END 2025-03-25 16:09 | disposition home or self-care (01) ==
LOC: NCHCN 16:08
PROVIDERS: PCP Nurse Practitioner Family; Visit Provider Nurse Practitioner Family
DX: Z00.00 Encounter for general adult medical examination without abnormal findings (principal); E61.1 Iron deficiency
CPT/HCPCS: 80053; 85027; 82728; 83540; 83550

== ENCOUNTER 2025-04-22 00:19 | Outpatient (CLI) | payer BC, SELFPAY ==
--- NOTE | 2025-04-22 | DI.MAMMO_ITS ---
Exam(s) MAMMO SCREENING EXAM: MAMMO SCREENING CLINICAL HISTORY: SCREENING, Z12.31 TECHNIQUE: Bilateral full field digital CC and MLO mammographic images were obtained with 3D tomosynthesis and utilizing computer aided detection (CAD). COMPARISON: Comparison is made with prior examinations. FINDINGS: Masses/Architectural Distortion: There is a focal asymmetry in the upper central right breast on the MLO view which is more prominent compared to the prior examination. It lies is 8 cm from the nipple and measures 7 mm. Microcalcifications: No suspicious pleomorphic-type are seen. Skin Thickening/Nipple Retraction: None. IMPRESSION: 1. Focal 7 mm asymmetry in the upper central right breast on the MLO view. 2. This area should be further evaluated with a spot compression view. Ultrasound may be indicated at that time. BI-RADS Category 0 - Incomplete: Need additional imaging evaluation Breast Density - Category B - There are scattered areas of fibroglandular density. Breast density Category C or D implies that the patient has dense breast tissue. Dense breast tissue can make it harder to find cancer on a mammogram. Dense breast tissue is also associated with an increased risk of breast cancer. This information about the result of the mammogram report was provided to the patient to raise their awareness. Use this report when you speak with the patient about their risks for breast cancer, which includes their family history. At that time, you may recommend additional screening tests (Ultrasound or MRI) as these tests may add significant information. A negative radiographic report should not delay biopsy if a dominant or clinically suspicious mass is present. Up to ten percent of cancers are not identified on mammography. A negative report may reinforce clinical impression. Adenosis and dense breasts may obscure an underlying neoplasm. False positive reports average 6 to 10%. Patient will receive a letter notifying them of these results.
== END 2025-04-22 00:39 ==
LOC: DI 00:19
PROVIDERS: PCP Nurse Practitioner Family; Visit Provider Nurse Practitioner Family
DX: Z12.31 Encounter for screening mammogram for malignant neoplasm of breast (principal)
CPT/HCPCS: 77063; 77067

== ENCOUNTER → 2025-05-05 02:08 | Outpatient (CLI) | payer BC, SELFPAY ==
--- NOTE | 2025-05-05 | DI.US_ITS ---
Exam(s) MG MAMMO SCREEN CALL BACK UNI US BREAST RT COMPLETE EXAM: MG MAMMO SCREEN CALL BACK UNI and U/S breast RT complete CLINICAL HISTORY: FOCAL 7MM ASYMMETRY UPPER CENTRAL RT BREAST R92.8 ABNL MAMMO. TECHNIQUE: Craniocaudal and mediolateral oblique Full Field Digital Mammography views of the right breast with Computer Aided Diagnosis followed by Tomosynthesis and complete right breast ultrasound. All 4 quadrants of the right breast were evaluated in addition to the right axilla and right retroare olar regions. COMPARISON: Comparison is made with prior examinations. FINDINGS: Mammography/Tomosynthesis: Masses/Architectural Distortion: There is a well-circumscribed nodule seen in the 12 o'clock position of the right breast which is unchanged compared to the prior examinations. There are no areas of architectural distortion present. Microcalcifictions: No suspicious pleomorphic-type are seen. Skin Thickening/Nipple Retraction: None. Complete right breast US: Echotexture: Normal appearance of the glandular tissue. Shadowing: No suspicious foci. Cyst: There is a well-circumscribed anechoic lesion at the 1 o'clock position of the right breast 8 cm from the nipple measuring 4 mm. This is consistent with a cyst. Solid lesions: There are 2 well-circumscribed radially oriented hypoechoic lesions present. One is at the 11 o'clock position 10 cm from the nipple. The 2nd is at the 12 o'clock position 7 cm from the nipple. This likely corresponds to the mammographic abnormality. These show no malignant characteristics at this time sonographically. They may reflect intraparenchymal lymph nodes or small fibroadenomas. Ductal dilation: None. IMPRESSION: 1. No evidence of malignancy is noted. 2. A six-month follow-up right mammogram and ultrasound is requested for re- evaluation. 3. The findings were discussed with the patient on the date of the examination. BI-RADS Category 3 - 6 month - Probably Benign Finding: Recommend follow-up imaging in 6 months Breast Density - Category B - There are scattered areas of fibroglandular density. Breast density Category C or D implies that the patient has dense breast tissue. Dense breast tissue can make it harder to find cancer on a mammogram. Dense breast tissue is also associated with an increased risk of breast cancer. This information about the result of the mammogram report was provided to the patient to raise their awareness. Use this report when you speak with the patient about their risks for breast cancer, which includes their family history. At that time, you may recommend additional screening tests (Ultrasound or MRI) as these tests may add significant information. A negative radiographic report should not delay biopsy if a dominant or clinically suspicious mass is present. Up to ten percent of cancers are not identified on mammography. A negative report may reinforce clinical impression. Adenosis and dense breasts may obscure an underlying neoplasm. False positive reports average 6 to 10%. Patient will receive a letter notifying them of these results.
== END ==
LOC: DI 02:08
PROVIDERS: PCP Nurse Practitioner Family; Visit Provider Nurse Practitioner Family
DX: Z12.31 Encounter for screening mammogram for malignant neoplasm of breast (principal); R92.8 Other abnormal and inconclusive findings on diagnostic imaging of breast
CPT/HCPCS: 76642; 77063; 77067